=== PATIENT | female | born 1980 | race Caucasian/White ===

== ENCOUNTER 2019-02-25 08:50 | Inpatient (IN) | payer BC ==
[2019-02-25] MEDS ORDERED: Lactated Ringers 1000 ML Bag* 1,000 ML IV ONE ×2 (10:24→17:44)
[2019-02-25] MEDS ORDERED: Buffered Lidocaine 1% SYRIN* 1 ML/SYRINGE INTRADERM ONE (10:24)
[2019-02-25] MEDS ORDERED: Lactated Ringers 1000 ML Bag* 1,000 ML IV SCH ×3 (11:00→23:00)
[2019-02-25 11:34] LABS: ABS Lymphocytes 1.2 10^3/ul (1.0-4.8); ABS Monocytes 0.9 10^3/ul (0-0.8); ABS Neutrophils 12.4 10^3/ul (1.5-7.7); Eosinophil % 0.1 %; Hematocrit 38 % (35-47); Lymphocyte % 8.6 %; Mean Corpuscular HGB Conc 34 g/dL (31-36); Mean Corpuscular Hemoglobin 30 pg (27-31); Mean Corpuscular Volume 88 fL (80-97); Mean Platelet Volume 8.1 fL (7.4-10.4); Platelet Count 181 10^3/uL (150-450); Red Blood Count 4.26 10^6 /uL (3.70-4.87); Red Cell Distribution Width 15 % (10-15); White Blood Count 14.5 10^3/uL (3.5-10.8)
[2019-02-25 12:54] LABS: Urine Benzodiazepine Screen None Detected (None Detect); Urine Opiates Screen None Detected (None Detect)
--- NOTE | 2019-02-25 14:13 | HP ---
General Information - Reason for Visit Pt is a 38yo at 40+3 wks EGA, presents this AM after SROM with some visible meconium at about 8:10 this AM. She has had continued leakage since then. Seen last night for labor evaluation and discharged home. Cx was 2cm dilated. She was 1cm on Monday. Pt has a h/o a C/S in 2011 after a failed induction at 38 wks for IUGR. Pt has strongly desired a trial of labor, so C/S was not scheduled until 41 wks. Pt reports irreg ctx that were quite severe this morning, but actually decreased in severity after her water broke. - General Information Maternal Age: 38 Grav: 2 Para: 1 SAB: 0 IEA: 0 Estimated Due Date: 02/22/19 Determined By: LMP Gestational Age in Weeks/Days: 40+3 Maternal Blood Type and Rh: O Positive - Results this Serology/RPR Result: Non-Reactive Rubella Result: Immune HBsAg Result: Negative HIV Result: Negative GBS Culture Result: Negative Past Medical History Delivery History: Hx C/Section Pertinent Past Medical History: See Records - asthma Pertinent Past Surgical History: See Records - breast implants, section, ear surgery - Antepartal Records Antepartal Records: Reviewed, Complicated by: - h/o , AMA, 3cm right ovarian cyst Review of Systems Constitutional: Comfortable CV Complaint: No Respiratory: Shortness of Breath: No Gastrointestinal: No Nausea/Vomiting Genitourinary: Leaking Fluid, No Dysuria, No Bleeding Musculoskeletal: Contractions - irreg Neurological: No Headache Movement: Normal Exam Allergies/Adverse Reactions: Allergies morphine Allergy (Verified 02/25/19 12:07) Vomiting VS normal, afebrile Lab Values - Entire Visit: Laboratory Tests 02/25/19 02/25/19 11:10 11:10 WBC 14.5 H RBC 4.26 Hgb 13.0 Hct 38 MCV 88 MCH 30 MCHC 34 RDW 15 Plt Count 181 MPV 8.1 Neut % (Auto) 84.9 Lymph % (Auto) 8.6 [place] % (Auto) 6.3 Eos % (Auto) 0.1 Baso % (Auto) 0.1 Absolute Neuts (auto) 12.4 H Absolute Lymphs (auto) 1.2 Absolute Monos (auto) 0.9 H Absolute Eos (auto) 0.0 Absolute Basos (auto) 0.0 Absolute Nucleated RBC 0.0 Nucleated RBC % 0.0 Blood Type O Positive Antibody Screen Negative - Measurements Height: 5 ft 4 in Weight: 167 lb Weight in lbs: [phone] Body Mass Index (BMI): 28.6 Pre- Weight: 135 lb Weight Gained This : 32 lbs and 0 ozs - Exam Breast: Breast Exam Deferred Heart: Normal Rhythm/Heart Sounds HEENT: No Significant Findings Lungs: Clear Bilaterally Rectal: Rectal Exam Deferred - Abdominal Exam Abdomen Exam: Non-Tender, Fundal Height Consistent with Dates - Ultrasound/Biophysical Profile Ultrasound Status: Not Done Targeted Exam Findings Estimated Weight: 7lb 6oz Membrane Status: SROM Amniotic Fluid Evaluation: Gross Rupture, Meconium EFM Findings - External Monitor Findings Baseline Heart Rate: 140 External Monitor Findings: Accelerations Present, No Pattern of Variable or Late Decelerations, Variability Moderate Contractions: Irregular, Mild, Moderate, Strong Contraction Frequency: Q3-6 Assessment/Plan - Assessment 38yo at 40 wks with gross SROM, appears to be in latent labor. Reassuring FHT today. Discussed labor options at length today. Pt still strongly desires a trial of labor. She is aware of the risk of uterine rupture, need for emergent . We will observe for a few more hours and then likely check cervix to assess for change. - Obstetrical Risk Factors Obstetrical Risk Factors: Previous C/Section in Labor - Plan Plan: Admit - Anticipate Vaginal Delivery Plan Comment: Plan to observe, consider pitocin augmentation if indicated and pt desires. Anesthesia aware pt is here. - Date/Time of Admission Date of Admission: 02/25/19 Time of Admission: :
[2019-02-25] MEDS ORDERED: Nalbuphine* 10 MG/ML 1 ML VIAL IV ONE (14:38)
[2019-02-25] MEDS ORDERED: Promethazine INJ(RESTRICTED)* 25 MG/ML 1 ML VIAL IV ONE (14:39)
[2019-02-25] MEDS ORDERED: Oxytocin in LR* 20 UNITS/1,000 ML BAG IVPB SCH ×2 (15:00→23:00)
[2019-02-25] MEDS ORDERED: OBEPIDURAL* 250 ML EPIDURAL ONE (17:07)
[2019-02-25] MEDS ORDERED: Famotidine TAB* 20 MG PO PRN (17:44)
[2019-02-25] MEDS ORDERED: Sodium Citrate/Citric Acid* 15 ML UDC PO PRN (17:44)
[2019-02-25] MEDS ORDERED: Phenylephrine 40 MCG/ML SYRINGE IV PUSH PRN ×2 (17:44)
[2019-02-25] MEDS ORDERED: OBEPIDURAL* 250 ML EPIDURAL SCH (18:00)
--- NOTE | 2019-02-25 22:55 | PROCNOTE ---
[facility] OB: Delivery Note - Delivery A Date of : 02/25/19 Time of : 21:54 [place] Sex: Female Weight at : 8 lb Score 1 Minute: 9 Score 5 Minutes: 9 Gestational Age in Weeks and Days at Delivery: 40 Weeks and 3 Days Delivery Method: Low Vacuum Extraction, Vaginal Labor: Spontaneous Did Patient attempt ?: Yes, Successful Amniotic Fluid: Meconium Estimated Blood Loss: 300 Anesthesia/Analgesia: CEI for Labor Delivered By: Radha Sams - Nursery Level of Nursery: Regular/Bedside - Perineum Perineal Injury: 3rd Degree Extension - partial Perineal Injury Comment: bilateral labial lac Perineal Repair: By Delivering Practioner - Events Delivery Events of Note: Pitocin During Labor - Additional Delivery Notes Additional Delivery Notes: Pt presented at 40+3 with SROM and irreg ctx, history of C/S desiring TOLAC. After about 6 hrs, there was no cervical change so low dose pitocin augmentation was added at pt's request. Pt received Nubain and Phenergan when ctx were getting much stronger. She progressed quickly to 7cm and received an epidural. After another couple hours she was fully dilated and began pushing. Pt pushed for almost 2 hrs, at which point there was no additional descent and pt was becoming exhausted. We discussed the option of a vacuum assistance since she was pushing to +2 to + 3. Reviewed risks of delivery failure, bruising, scalp bleeding, and more severe perineal laceration. Pt agreed to continue with it. Valdes removed, and anesthesia was very adequate. Head in OA position. Kiwi vacuum applied to head just anterior to posterior fontanelle. With two sets of pushes, head descended well with only moderate traction. Head delivered in a controlled fashion. Kiwi removed. Shoulders delivered without difficulty and body followed. Infant placed on mother's abdomen, crying immediately. After about 90 sec, cord doubly clamped and cut. IV pitocin increased. Intact placenta delivered spontaneously. 1% lidocaine injected. 2nd degree perineal laceration noted with slight partial third degree extension into outer capsule. Capsule reinforced with 3-0 Vicryl. Perineum repaired with 3-0 Vicryl rapide. Bilateral labial lacerations repaired with 4-0 Vicryl rapide.
[2019-02-26] MEDS ORDERED: Ammonia Inhalant* 1 EA AMP ONE (00:05)
[2019-02-26] MEDS: Ibuprofen TAB* 600 MG PO SCH ×4 (00:24→20:56)
[2019-02-26] MEDS: Dibucaine 1% 28.35 GM TUBE PR PRN ×2 (00:25→08:07)
[2019-02-26] MEDS: Witch Hazel PAD* JAR TOPICAL PRN ×2 (00:25→08:07)
[2019-02-26] MEDS: Docusate CAP* 100 MG PO SCH ×3 (08:06→20:56)
[2019-02-26] MEDS ORDERED: Ferrous Gluconate TAB* 324 MG TAB PO ONE (09:00)
[2019-02-26 10:39] LABS: ABS Lymphocytes 1.5 10^3/ul (1.0-4.8); ABS Neutrophils 12.8 10^3/ul (1.5-7.7); Eosinophil % 0.1 %; Hematocrit 35 % (35-47); Hemoglobin 11.6 g/dL (12.0-16.0); Lymphocyte % 9.6 %; Mean Corpuscular HGB Conc 34 g/dL (31-36); Mean Corpuscular Hemoglobin 30 pg (27-31); Mean Corpuscular Volume 90 fL (80-97); Mean Platelet Volume 8.3 fL (7.4-10.4); Platelet Count 173 10^3/uL (150-450); Red Blood Count 3.85 10^6 /uL (3.70-4.87); Red Cell Distribution Width 15 % (10-15); White Blood Count 15.3 10^3/uL (3.5-10.8)
[2019-02-26] MEDS ORDERED: Influenza VAC *QUAD* 2019-20* 0.5 ML SYRINGE IM ONE (16:00)
[2019-02-26] MEDS: Acetaminophen TAB* 325 MG PO PRN (20:59)
[2019-02-26] MEDS ORDERED: Lidocaine 2% VISCOUS* 15 ML UDC ONE (22:42)
[2019-02-26] MEDS ORDERED: Lidocaine 2% JELLY* 6 ML JELLY TOPICAL ONE (23:00)
[2019-02-27] MEDS: Ibuprofen TAB* 600 MG PO SCH ×3 (03:26→11:20)
[2019-02-27] MEDS: Acetaminophen TAB* 325 MG PO PRN (05:05)
[2019-02-27] MEDS: Docusate CAP* 100 MG PO SCH (09:32)
[2019-02-27 11:11] VITALS: BP 114/79
== END 2019-02-27 12:53 | disposition home or self-care (01) | DRG 542 ==
LOC: MCHOBOUT 08:50 → MCHOB 09:54
PROVIDERS: ADMIT Obstetrics & Gynecology; ATTEND Obstetrics & Gynecology
PROC: 10D07Z6 Extraction of Products of Conception, Vacuum, Via Natural or Artificial Opening (ICD-10-PCS; principal; 2019-02-25)
PROC: 0DQR0ZZ Repair Anal Sphincter, Open Approach (ICD-10-PCS; 2019-02-25)
PROC: 0UQMXZZ Repair Vulva, External Approach (ICD-10-PCS; 2019-02-25)
PROC: 4A1HXCZ Monitoring of Products of Conception, Cardiac Rate, External Approach (ICD-10-PCS; 2019-02-25)
DX: O48.0 Post-term pregnancy (principal); Z37.0 Single live birth; O70.20 Third degree perineal laceration during delivery, unspecified; O34.211 Maternal care for low transverse scar from previous cesarean delivery; O77.0 Labor and delivery complicated by meconium in amniotic fluid; O34.83 Maternal care for other abnormalities of pelvic organs, third trimester; N83.201 Unspecified ovarian cyst, right side; O75.81 Maternal exhaustion complicating labor and delivery; O62.0 Primary inadequate contractions; Z23 Encounter for immunization; Z3A.40 40 weeks gestation of pregnancy; Z88.5 Allergy status to narcotic agent
CPT/HCPCS: 36415; 80307; 85025; 86850; 86900; 86901; 90686; A9270-GY; J2300; J2550